=== PATIENT | male | born 1960 | race African-American/Black ===

== ENCOUNTER 2017-01-11 10:44 | Observation (INO) | payer OTHER ==
[~2017-01-11] VITALS: Ht 162.6 cm; Wt 65.3 kg
[2017-01-11 11:24] LABS: BASOPHIL % 0.5 % (0-2); PLATELET COUNT 199 x10^3mcL (130-400); RED CELL DISTRIBUTION WIDTH 13.3 % (11.5-14.5)
[2017-01-11 11:31] LABS: CALCIUM 8.8 mg/dL (8.5-10.1); CARBON DIOXIDE 25.4 mmol/L (21-32); CHLORIDE SERUM 103 mmol/L (98-107); CREATININE SERUM 1.1 mg/dL (0.7-1.3); GFR1 > 60 mL/min; GLUCOSE SERUM 111 mg/dL (74-106); POTASSIUM SERUM 3.6 mmol/L (3.5-5.1); SODIUM SERUM 141 mmol/L (136-145)
[2017-01-11 11:36] LABS: ALBUMIN 3.8 g/dL (3.4-5.0); ALKALINE PHOSPHATASE 48 U/L (46-116); ALT/SGPT 26 U/L (16-63); AST/SGOT 35 U/L (15-37); BILIRUBIN TOTAL 0.5 mg/dL (0.20-1.00)
[2017-01-11 11:36] LABS: UA SPECIFIC GRAVITY 1.015 (1.005-1.035); microscopic required? YES; urine erythrocyte NEGATIVE (NEGATIVE)
[2017-01-11 11:49] LABS: AMPHETAMINE QUAL UR NONE DETECTED (NEG <=1000)
[2017-01-11] MEDS ORDERED: NOR10 PO (11:55)
[2017-01-11] MEDS ORDERED: LOSARTAN POTASS25 M1 PO (11:55)
[2017-01-11 12:36] LABS: FREE T4 0.84 ng/dL (0.76-1.46); FREE THYROXINE INDEX 2.1 ug/dL (1.4-4.5); T4(THYROXINE) 5.7 ug/dL (4.7-13.3)
[2017-01-11 12:51] LABS: T3 TOTAL 0.76 ng/mL
[2017-01-11 13:17] VITALS: BP 123/86
[2017-01-11 13:25] LABS: CHOLESTEROL/HDL RATIO 1.7
[2017-01-11 18:11] VITALS: BP 113/80
[2017-01-12 06:21] LABS: CALCIUM 8.3 mg/dL (8.5-10.1); CARBON DIOXIDE 26.4 mmol/L (21-32); CHLORIDE SERUM 104 mmol/L (98-107); GFR1 > 60 mL/min; GLUCOSE SERUM 127 mg/dL (74-106); MAGNESIUM 1.9 mg/dL (1.8-2.4); PHOSPHOROUS 3.7 mg/dL (2.5-4.9); POTASSIUM SERUM 3.4 mmol/L (3.5-5.1); SODIUM SERUM 139 mmol/L (136-145)
[2017-01-12 06:57] LABS: BASOPHIL % 0.6 % (0-2); PLATELET COUNT 193 x10^3mcL (130-400); RED CELL DISTRIBUTION WIDTH 13.6 % (11.5-14.5)
[2017-01-12 09:15] VITALS: BP 114/80
[2017-01-12] MEDS ORDERED: LIPI10 PO (12:02)
[2017-01-12] MEDS ORDERED: ECO81 PO (12:03)
== END 2017-01-12 13:30 | disposition home or self-care (01) | DRG 312 ==
LOC: ED 10:44 → DU 11:39
PROVIDERS: Emergency Medicine; ADMIT Family Medicine
DX: R55 Syncope and collapse (principal); N17.0 Acute kidney failure with tubular necrosis; E87.5 Hyperkalemia; I10 Essential (primary) hypertension; F17.220 Nicotine dependence, chewing tobacco, uncomplicated; F10.10 Alcohol abuse, uncomplicated
CPT/HCPCS: 80307; 82962; 83880; 84439; G0378; G0480; J7030; Q0092